=== PATIENT | female | born 1960 | race Caucasian/White ===

== ENCOUNTER 2020-09-15 08:41 | Emergency (ER) | payer BC ==
[2020-09-15 09:14] VITALS: BP 132/103
--- NOTE | 2020-09-15 09:35 | XRAY Report ---
PROCEDURE: Ankle 3 View RT INDICATIONS: Trauma TECHNIQUE: 3 views of the ankle were acquired. COMPARISON: None. FINDINGS: Bones: No fractures or dislocations. Small plantar calcaneal spur. Ankle mortise is normally aligned . No suspicious bony lesions. Soft tissues: Soft tissue swelling at the malleoli. No tibiotalar joint effusion. Achilles tendon a ppears normal. IMPRESSION: No fracture identified. Swelling at the malleoli. Reviewed by: Madi Rowley MD on 09/15/2020 9:34 AM PDT Approved by: Madi Rowley MD on 09/15/2020 9:34 AM PDT Station ID: [id number]
--- NOTE | 2020-09-15 09:40 | ED Physician Documentation ---
PD HPI LOWER EXT INJURY - Stated complaint Stated Complaint: RIGHT ANKLE INJURY - Chief complaint Chief Complaint: Trauma Ext - History obtained from History obtained from: Patient - History of Present Illness PD HPI LOW EXT INJURY LOCATION: Right, Ankle Type of injury: Twist Timing - onset: Yesterday Timing - duration: Days (1) Timing - details: Abrupt onset Pain level max: 6 Pain level now: 5 Improved by: Rest Worsened by: Moving, Palpating Associated symptoms: Swelling. No: Weakness, Numbness, Tingling - Additional information Additional information: Patient is a 60-year-old female who presents to the emergency department after twisting her foot and ankle last night in her son's yard. Worse with movement, better with rest. Complains of pain and swelling to the ankle. No numbness or tingling. Review of Systems Constitutional: denies: Fever, Chills GI: denies: Vomiting, Diarrhea Musculoskeletal: denies: Neck pain, Back pain Neurologic: denies: Headache, Head injury, LOC PD PAST MEDICAL HISTORY - Past Medical History Past Medical History: Yes Cardiovascular: Hypertension, High cholesterol - Allergies Allergies/Adverse Reactions: Allergies Allergy/AdvReac Type Severity Reaction Status Date / Time No Known Drug Allergies Allergy Verified 09/15/20 09:09 - Living Situation Living Situation: reports: With family Living Arrangement: reports: At home - Social History Does the pt have substance abuse?: No - Family History Family history: reports: Non contributory PD ED PE NORMAL - Vitals Vital signs reviewed: Yes - General General: Alert and oriented X 3, No acute distress, Well developed/nourished - HEENT HEENT: Moist mucous membranes - Neck Neck: Supple, no meningeal sign - Cardiac Cardiac: RRR, Strong equal pulses - Respiratory Respiratory: No respiratory distress, Clear bilaterally - Abdomen Abdomen: Soft, Non tender, Non distended - Derm Derm: Warm and dry - Extremities Extremities: Other (Tender to palpation over the right ankle, bilateral malleoli. No tenderness at the base of the fifth metatarsal. Mild swelling and bruising. No significant tenderness over the dorsum of the foot.) - Neuro Neuro: Alert and oriented X 3 - Psych Psych: Normal mood, Normal affect Results - Vitals Vitals: Vital Signs - 24 hr 09/15/20 09:00 Temperature 37.0 C Heart Rate 68 Respiratory 18 Rate Blood Pressure 132/103 H O2 Saturation 98 Oxygen O2 Source Room air - Rads (name of study) R ankle xray Radiology: Prelim report reviewed, EMP read contemporaneously, See rad report (no acute findings. ) PD MEDICAL DECISION MAKING - ED course Complexity details: reviewed results, re-evaluated patient, considered differential, d/w patient ED course: 60-year-old female with a right ankle injury. No acute findings on x-ray. P laced in a gel splint and postoperative shoe for comfort. We will continue supportive care and have her follow-up with her doctor. Patient counseled regarding signs and symptoms for which I believe and urgent re-evaluation would be necessary. Patient with good understanding of and agreement to plan and is comfortable going home at this time This document was made in part using voice recognition software. While efforts are made to proofread this document, sound alike and grammatical errors may occur. Departure - Departure Disposition: 01 Home, Self Care Clinical Impression: Ankle sprain Qualifiers: Encounter type: initial encounter Involved ligament of ankle: unspecified ligament Laterality: right Qualified Code(s): S93.401A - Sprain of unspecified ligament of right ankle, initial encounter Foot sprain Qualifiers: Encounter type: initial encounter Laterality: right Qualified Code(s): S93.601A - Unspecified sprain of right foot, initial encounter Condition: Good Instructions: ED Sprain Ankle W X Ray, ED Sprain Foot Follow-Up: your,doctor in 1 week [Other] Comments: Your x-ray does not show any acute abnormalities today. You can use the postoperative shoe as needed for comfort. Follow-up with your doctor as needed for further care. You can use Motrin or Tylenol as needed for pain. Discharge Date/Time: 09/15/20 10:26
== END 2020-09-15 10:26 | disposition home or self-care (01) ==
LOC: ED 08:41
DX: S93.401A Sprain of unspecified ligament of right ankle, initial encounter (principal); X50.1XXA Overexertion from prolonged static or awkward postures, initial encounter; Y92.007 Garden or yard of unspecified non-institutional (private) residence as the place of occurrence of the external cause; I10 Essential (primary) hypertension
CPT/HCPCS: 99282; 99283